=== PATIENT | female | born 1965 | race Caucasian/White ===

== ENCOUNTER 2017-09-14 12:49 | Emergency (ER) | payer OTHER ==
[~2017-09-14] VITALS: Ht 162.6 cm; Wt 119.7 kg
[2017-09-14] MEDS ORDERED: KETOROLAC 60 MG/2 ML VIAL. IM ONE (13:45)
[2017-09-14] MEDS ORDERED: IBUP800T19 PO (13:57)
[2017-09-14] MEDS ORDERED: TRAM-48 PO (13:57)
[2017-09-14] MEDS ORDERED: SULF1TAB24 PO (13:57)
[2017-09-14] MEDS ORDERED: MUPI1OIN NS (13:57)
--- NOTE | 2017-09-14 13:57 | PHYS DOC ---
Past History Past Medical History: Other Past Surgical History: Smoking: Non-smoker Alcohol Use: None Drug Use: None Adult General Chief Complaint Chief Complaint: FACE PROBLEM HPI HPI 51-year-old female patient states she felt discomfort feeling in her nose while tried to blow her nose and this morning she woke up and had swelling of her nasal septum with crusty discharge associated with mild edema and numbness of upper lip and bilateral lower eyelid edema more in left side than right side without fever and chills, history of MRSA or injury, nausea and vomiting, change of vision. Patient rated her pain 8/10 and is up-to-date with her tetanus immunization. Review of Systems Review of Systems Constitutional: Denies fever or chills [] Eyes: Denies change in visual acuity, redness, or eye pain [] HENT: Denies nasal congestion or sore throat [] Respiratory: Denies cough or shortness of breath [] Cardiovascular: No additional information not addressed in HPI [] GI: Denies abdominal pain, nausea, vomiting, bloody stools or diarrhea [] : Denies dysuria or hematuria [] Musculoskeletal: Denies back pain or joint pain [] Integument: Reports edema and erythema Neurologic: Denies headache, focal weakness or sensory changes [] Endocrine: Denies polyuria or polydipsia [] All other systems were reviewed and found to be within normal limits, except as documented in this note. Current Medications Current Medications Current Medications Medications (Trade) Dose Ordered Sig/Sheryl Start Time Stop Time Status Last Admin Dose Admin Ketorolac Tromethamine (Toradol) 60 mg 1X ONCE 09/14/17 13:45 09/14/17 13:46 DC 09/14/17 13:38 60 MG Allergies Allergies Allergies Coded Allergies Type Severity Reaction Last Updated Verified acetaminophen Allergy Unknown 09/14/17 Yes aspirin Allergy Unknown 09/14/17 Yes codeine Allergy Unknown 09/14/17 Yes meperidine Allergy Unknown 09/14/17 Yes oxycodone Allergy Unknown 09/14/17 Yes propoxyphene Allergy Unknown 09/14/17 Yes Physical Exam Physical Exam Constitutional: Well developed, well nourished, mild distress, non-toxic appearance. [] HENT: Normocephalic, bilateral external ears normal, oropharynx moist, no oral exudates, tenderness and edema of nasal septum with mild edema of upper lip , bilateral lower eyelid edema more in the left site Eyes: PERRLA, EOMI, conjunctiva normal, no discharge. [] Neck: Normal range of motion, no tenderness, supple, no stridor. [] Cardiovascular:Heart rate regular rhythm, no murmur [] Lungs & Thorax: Bilateral breath sounds clear to auscultation [] Neurologic: Alert and oriented X 3, normal motor function, normal sensory function, no focal deficits noted. [] Psychologic: Affect normal, judgement normal, mood normal. [] Current Patient Data Vital Signs Vital Signs Date Time Temp Pulse Resp B/P (MAP) Pulse Ox O2 Delivery O2 Flow Rate FiO2 09/14/17 13:30 104 18 126/91 (103) 99 Room Air 09/14/17 12:57 98.2 EKG EKG [] Radiology/Procedures Radiology/Procedures [] Course & Med Decision Making Course & Med Decision Making Evolution of patient in ER showed 51-year-old female patient with cellulitis of nasal cavity and facial edema. Patient treated with Toradol in ER and prescription for Bactroban and Bactrim and Ultram was given. Patient had blood sugar of 160/100 at arrival to ER that spontaneously decreased to 120/90. Patient instructed to record her blood pressure and follow with her primary care physician for possible diagnosis of hypertension . Dragon Disclaimer Dragon Disclaimer This electronic medical record was generated, in whole or in part, using a voice recognition dictation system. Departure Departure: Impression: Primary Impression: Cellulitis of nose Additional Impressions: MRSA infection Elevated blood pressure reading without diagnosis of hypertension Disposition: HOME, SELF-CARE (At 1400) Condition: IMPROVED Referrals: PCP,PAMELA (PCP) Patient Instructions: Cellulitis, Community-Associated MRSA Additional Instructions: Follow-up with your primary care physician or ER if not getting better in 24- 48 hours Scripts Ibuprofen (IBUPROFEN) 800 Mg Tablet 1 TAB PO TID, #30 TAB Prov: CAROL ANN DUNN MD 09/14/17 Tramadol Hcl (ULTRAM) 50 Mg Tablet 50 MG PO PRN Q6HRS Y for PAIN, #14 TAB Prov: CAROL ANN DUNN MD 09/14/17 Sulfamethoxazole/Trimethoprim (BACTRIM DS TABLET) 1 Each Tablet 1 TAB PO BID, #14 TAB Prov: CAROL ANN DUNN MD 09/14/17 Mupirocin Calcium (BACTROBAN NASAL) 1 Gm Oint...g. 1 GM NS BID, #10 GM Prov: CAROL ANN DUNN MD 09/14/17 Problem Qualifiers CAROL ANN DUNN MD Sep 14, 2017 13:57
[2017-09-14 14:00] VITALS: BP 136/89
== END 2017-09-14 14:07 | disposition home or self-care (01) ==
LOC: ER 12:49
DX: J34.0 Abscess, furuncle and carbuncle of nose (principal); B95.62 Methicillin resistant Staphylococcus aureus infection as the cause of diseases classified elsewhere; R03.0 Elevated blood-pressure reading, without diagnosis of hypertension; Z88.5 Allergy status to narcotic agent; Z88.6 Allergy status to analgesic agent; Z88.8 Allergy status to other drugs, medicaments and biological substances
CPT/HCPCS: 96372; 99283; J1885

== ENCOUNTER → 2019-04-09 | Outpatient (CLI) | payer OTHER ==
[~2019-04-09] MED LIST: CONTRAST GIVEN MC PRN; IBUP800T19 PO; IOHEXOL 240 MG/ML 50ML VIAL. ONE; IOHEXOL 240 MG/ML 50ML VIAL. PO ONE; IOHEXOL 300 MG/ML 75 ML VIAL. IV ONE; MUPI1OIN NS; SULF1TAB24 PO; TRAM-48 PO
--- NOTE | 2019-04-09 13:50 | RAD ---
CT of the pelvis with contrast 04/09/2019 INDICATION: Cystic mass in the pelvis, unsure if relates to the uterus or ovary. COMPARISON STUDY: None available Discussion: CT imaging of the pelvis performed following the administration of contrast. FINDINGS: There is a cystic mass in the right adnexa, likely arising from the right ovary measuring approximately 5.4 cm in maximal possible dimension. An adjacent small cystic structure or involuting follicle appears to be present, but could be considered continuities with the aforementioned cystic mass. Inferiorly, laterally, and posteriorly areas of possible cystic wall thickening are seen which appear to measure up to [address] is limited for evaluation of ovarian cystic lesions. . There is an approximately 5 cm enhancing mass with central hypodensity in the anterior uterine fundus likely a fibroid. Some fluid noted within the endometrial canal. Correlate with phase of menstrual cycle and/or bleeding. The bladder is relatively decompressed. No free fluid is seen in the pelvis. Distal colonic diverticulosis noted. No pelvic adenopathy is seen visualized bowel is nondilated no acute osseous abnormality involving the pelvis is seen. IMPRESSION: 1.5.4 cm cystic mass with, possible wall thickening up to 6 mm, and adjacent or contiguous small cystic mass versus including follicle. Note that CT is limited for evaluation of ovarian lesions. Transvaginal ultrasound or contrast-enhanced MRI offers better imaging resolution. Gynecology consultation recommended. 2. Probable fibroid within the anterior uterus measuring approximately [address] DOSING PQRS STATEMENT: One or more of the following individualized dose reduction techniques were utilized for this examination: 1. Automated exposure control 2. Adjustment of the mA and/or kV according to patient size 3. Use of iterative reconstruction technique Electronically signed by: Luis F Nicholson MD (04/09/2019 1:47 PM) [id number]
--- NOTE | 2019-04-09 15:43 | RAD ---
DATE: 04/09/2019 EXAM: DIGITAL SCREEN BILAT W/CAD HISTORY: Routine screening COMPARISON: 11/16/2014 This study was interpreted with the benefit of Computerized Aided Detection (CAD). Breast Density: SCATTERED The breast parenchyma shows scattered fibroglandular densities. Breast parenchyma level B. FINDINGS: No suspicious calcifications, masses, or distortion. IMPRESSION: Stable BI-RADS CATEGORY: 1 NEGATIVE RECOMMENDED FOLLOW-UP: 12M 12 MONTH FOLLOW-UP PQRS compliance statement: Patient information was entered into a reminder system with a target due date for the next mammogram. Mammography is a sensitive method for finding small breast cancers, but it does not detect them all and is not a substitute for careful clinical examination. A negative mammogram does not negate a clinically suspicious finding and should not result in delay in biopsying a clinically suspicious abnormality. "Our facility is accredited by the [employer] Mammography Program."
== END | disposition home or self-care (01) ==
LOC: MAMMO 09:40
PROVIDERS: ATTEND Obstetrics & Gynecology
DX: Z12.31 Encounter for screening mammogram for malignant neoplasm of breast (principal); K57.30 Diverticulosis of large intestine without perforation or abscess without bleeding; N94.89 Other specified conditions associated with female genital organs and menstrual cycle
CPT/HCPCS: 72193; 77067; Q9966; Q9967

== ENCOUNTER 2020-10-10 11:53 | Emergency (ER) | payer OTHER ==
[~2020-10-10] VITALS: Ht 162.6 cm; Wt 116.3 kg
[~2020-10-10 11:53] MED LIST changes: -CONTRAST GIVEN MC PRN; -IOHEXOL 240 MG/ML 50ML VIAL. ONE; -IOHEXOL 240 MG/ML 50ML VIAL. PO ONE; -IOHEXOL 300 MG/ML 75 ML VIAL. IV ONE
--- NOTE | 2020-10-10 12:28 | PHYS DOC ---
Past History Past Medical History: Migraines, Other Additional Past Medical Histor: Guillain-Johnson, chronic back pain Past Surgical History: (X3), Tubal ligation Additional Past Surgical Histo: Bartholin gland cyst removal Smoking: Non-smoker Alcohol Use: None Drug Use: None General Adult EDM: Chief Complaint: ABDOMINAL PAIN HPI: HPI: 54-year-old female presents with 1 week history of upper abdominal pain/tightness with radiation to bilateral flanks. Patient reports this became worse after eating some jalapeno poppers. Patient reports this has been an intermittent issue for the last 10 years. Reports significant family history of gallbladder disease. Patient concerned this is secondary to her gallbladder. Denies fever or chills. Reports associated nausea and vomiting. Denies trauma. Denies rash. Patient does report she still has menstrual periods. Denies . Reports surgical history of x3 and tubal ligation. Review of Systems: Review of Systems: Constitutional: Denies fever or chills Eyes: Denies redness or eye pain HENT: Denies nasal congestion or sore throat Respiratory: Denies cough or shortness of breath Cardiovascular: Denies chest pain or palpitations GI: Reports abdominal pain, nausea, and vomiting : Denies dysuria or hematuria Musculoskeletal: Reports bilateral flank pain; denies joint pain Integument: Denies rash or skin lesions Neurologic: Denies headache, focal weakness or sensory changes Complete systems were reviewed and found to be within normal limits, except as documented in this note. Allergies: Allergies: Allergies Coded Allergies Type Severity Reaction Last Updated Verified acetaminophen Allergy Unknown 09/14/17 Yes aspirin Allergy Unknown 09/14/17 Yes codeine Allergy Unknown 09/14/17 Yes meperidine Allergy Unknown 09/14/17 Yes oxycodone Allergy Unknown 09/14/17 Yes propoxyphene Allergy Unknown 09/14/17 Yes Physical Exam: PE: Constitutional: Well developed, obese, no acute distress, non-toxic appearance HENT: Normocephalic, atraumatic Eyes: Conjunctiva normal, no discharge Neck: Normal range of motion, no tenderness, supple Lungs & Thorax: No respiratory distress, equal chest rise and fall Abdomen: Soft, upper quadrant tenderness, no distention Skin: Warm, dry, no erythema, no rash Back: No tenderness, bilateral CVA tenderness Extremities: No tenderness, ROM intact, no edema Neurologic: Alert and oriented X 3, no focal deficits noted Psychologic: Affect normal, judgment normal EKG: EKG: @1226 NSR at 83 bpm, NO ST elevation, QRS 92ms, QT/QTc 346/407ms Radiology/Procedures: Radiology/Procedures: PROCEDURE: CT ABD PELV W/ IV CONTRST ONLY Site ID: [id number] EXAMINATION: CT ABDOMEN+PELVIS W. Technique: Axial images with coronal and sagittal reconstructions are performed of abdomen and pelvis with intravenous contrast. 100 ml of Isovue-300 was administered intravenously. One or more of the following radiation dose reduction techniques was used: automated exposure control, adjustment of mA and/or KV according to patient size, and/or utilization of iterative reconstruction technique. HISTORY: 54 years Female Reason: upper abdominal pain / Spl. Instructions: / History: . . COMPARISON: None. FINDINGS: There is a calcified granuloma in the left lung base. Calcified granulomas are also seen in the spleen the liver with no soft tissue mass. Multiple gallbladder stones are noted with no evidence of acute cholecystitis. The pancreas and adrenals appear unremarkable. The kidneys demonstrate symmetric enhancement. There is no hydronephrosis. There are 2 hypodense lesions in the right kidney up to 8 mm in size, too small to accurately characterize. Statistically these are most likely related to cysts. The the urinary bladder, uterus and adnexa appear unremarkable. There is prominent diverticulosis seen in the colon mostly in the sigmoid and descending colon. No diverticulitis. Appendix is normal. No bowel obstruction. No free fluid or fluid collection in the abdomen or pelvis. The abdominal aorta is normal in caliber. No para-aortic significantly enlarged lymph node is seen. The mild the anterior osteophytes at multiple levels in the lower thoracic upper lumbar spine seen. IMPRESSION: 1. Cholelithiasis. 2. Diverticulosis. No diverticulitis. Electronically signed by: Edu Jeffery MD (10/10/2020 12:49 PM) [id number] Heart Score: C/O Chest Pain: N/A Course & Med Decision Making: Course & Med Decision Making Pertinent Labs and Imaging studies reviewed. (See chart for details) Patient presents with upper abdominal pain and tightness with radiation to bilateral flanks. Significant family history of gallbladder disease. Pain/nausea addressed. IV fluid hydration given. EKG stable. Labs obtained and posted to chart. LFTs slightly elevated. UA appears contaminated. CT abdomen/pelvis with findings of cholelithiasis without signs of acute cholecystitis. Patient does not require emergent surgery but should follow closely with outpatient general surgery for removal of her gallbladder. Patient stable for discharge with outpatient follow-up with PCP/general surgery. General surgery referral provided. Discussed findings and plan with patient and family, who acknowledge understanding and agreement. Lizz Disclaimer: Lizz Disclaimer: This electronic medical record was generated, in whole or in part, using a voice recognition dictation system. Departure Departure: Impression: Primary Impression: Cholelithiasis Qualified Codes: K80.20 - Calculus of gallbladder without cholecystitis without obstruction Additional Impression: Elevated LFTs Disposition: HOME / SELF CARE / HOMELESS Condition: STABLE Referrals: MADY FERNANDEZ MD (PCP) YAZ GORE MD Patient Instructions: Cholelithiasis, Fat and Cholesterol Control Diet, [id number] Additional Instructions: Increase fluid hydration. Have your family doctor or surgeon repeat your liver enzymes for re-evaluation. Scripts Hyoscyamine Sulfate (LEVSIN-SL) 0.125 Mg Tab.subl 0.125 MG SL Q6HRS PRN for STOMACH CRAMPING, #14 TAB Prov: ASHLEY EVANS DO 10/10/20 Ondansetron (ONDANSETRON ODT) 4 Mg Tab.rapdis 1 TAB PO PRN Q6-8HRS PRN for NAUSEA, #16 TAB Prov: ASHLEY EVANS DO 10/10/20 Famotidine (PEPCID) 20 Mg Tablet 1 TAB PO BID for Gastritis, #10 TAB Prov: ASHLEY EVANS DO 10/10/20 Tramadol Hcl (TRAMADOL HCL) 50 Mg Tablet 50 MG PO PRN Q6HRS PRN for PAIN, #14 TAB Prov: ASHLEY EVANS DO 10/10/20 ASHLEY EVANS DO October 10, 2020 12:28
[2020-10-10] MEDS ORDERED: ONDANSETRON PF 4 MG/2 ML VIAL. IVP ONE (12:30)
[2020-10-10] MEDS ORDERED: FAMOTIDINE 20 MG/2 ML VIAL IVP ONE (12:30)
[2020-10-10] MEDS ORDERED: IV NORMAL SALINE 1,000ML 1,000 ML IV ONE (12:30)
[2020-10-10] MEDS ORDERED: IOHEXOL 300 MG/ML 75 ML VIAL. IV ONE (12:30)
--- NOTE | 2020-10-10 12:51 | RAD ---
Site ID: [id number] EXAMINATION: CT ABDOMEN+PELVIS W. Technique: Axial images with coronal and sagittal reconstructions are performed of abdomen and pelvis with intravenous contrast. 100 ml of Isovue-300 was administered intravenously. One or more of the following radiation dose reduction techniques was used: automated exposure control , adjustment of mA and/or KV according to patient size, and/or utilization of iterative reconstructio n technique. HISTORY: 54 years Female Reason: upper abdominal pain / Spl. Instructions: / History: . . COMPARISON: None. FINDINGS: There is a calcified granuloma in the left lung base. Calcified granulomas are also seen in the spleen the liver with no soft tissue mass. Multiple gallbla dder stones are noted with no evidence of acute cholecystitis. The pancreas and adrenals appear unrem arkable. The kidneys demonstrate symmetric enhancement. There is no hydronephrosis. There are 2 hypodense lesi ons in the right kidney up to 8 mm in size, too small to accurately characterize. Statistically these are most likely related to cysts. The the urinary bladder, uterus and adnexa appear unremarkable. There is prominent diverticulosis seen in the colon mostly in the sigmoid and descending colon. No di verticulitis. Appendix is normal. No bowel obstruction. No free fluid or fluid collection in the abdomen or pelvis. The abdominal aorta is normal in caliber. No para-aortic significantly enlarged lymph node is seen. The mild the anterior osteophytes at multiple levels in the lower thoracic upper lumbar spine seen. IMPRESSION: 1. Cholelithiasis. 2. Diverticulosis. No diverticulitis. Electronically signed by: Edu Jeffery MD (10/10/2020 12:49 PM) [id number]
[2020-10-10 12:52] LABS: BASO # 0.1 x10^3/uL (0.0-0.2); BASO % 1 % (0-3); EOS # 0.2 x10^3/uL (0.0-0.7); EOS % 2 % (0-3); HEMATOCRIT 38.9 % (36.0-47.0); HEMOGLOBIN 13.3 g/dL (12.0-15.5); LYMPH # 2.4 x10^3/uL (1.0-4.8); LYMPH % 26 % (24-48); MEAN CORPUSCULAR HEMOGLOBIN 31 pg (25-35); MEAN CORPUSCULAR HGB CONC 34 g/dL (31-37); MEAN CORPUSCULAR VOLUME 91 fL (79-100); MONO # 0.8 x10^3/uL (0.0-1.1); MONO % 8 % (0-9); NEUT # 5.8 x10^3uL (1.8-7.7); NEUT % 62 % (31-73); PLATELET COUNT 396 x10^3/uL (140-400); RED BLOOD COUNT 4.28 x10^6/uL (3.50-5.40); RED CELL DISTRIBUTION WIDTH 14.7 % (11.5-14.5); WHITE BLOOD COUNT 9.3 x10^3/uL (4.0-11.0)
[2020-10-10 13:04] LABS: CALCIUM 9.8 mg/dL (8.5-10.1); CREATININE 0.9 mg/dL (0.6-1.0); GFR 65.8; POTASSIUM 4.2 mmol/L (3.5-5.1)
[2020-10-10 13:10] LABS: BACTERIA,URINE 0 /HPF (0-FEW); BILIRUBIN,URINE NEG (NEG); CLARITY,URINE CLEAR; COLOR,URINE YELLOW; GLUCOSE,URINE NEG (NEG); NITRITE,URINE NEG (NEG); RBC,URINE 0 /HPF (0-2); SQUAMOUS EPITHELIAL CELL,UR MOD /LPF; UROBILINOGEN,URINE 0.2 mg/dL (0.2 mg/dL)
[2020-10-10 13:14] VITALS: BP 131/55
[2020-10-10 13:20] LABS: ALBUMIN 3.9 g/dL (3.4-5.0); ALBUMIN/GLOBULIN RATIO 1.1 (1.0-1.7); MAGNESIUM 1.9 mg/dL (1.8-2.4); TOTAL BILIRUBIN 0.3 mg/dL (0.2-1.0); TOTAL PROTEIN 7.3 g/dL (6.4-8.2)
--- NOTE | 2020-10-10 13:33 | EKG ---
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
[2020-10-10] MEDS ORDERED: FAMO-63 PO (14:03)
[2020-10-10] MEDS ORDERED: TRAM50TA PO (14:03)
[2020-10-10] MEDS ORDERED: ONDA4TAB12 PO (14:03)
[2020-10-10] MEDS ORDERED: HYOS0.1265 SL (14:03)
== END 2020-10-10 14:15 | disposition home or self-care (01) ==
LOC: ER 11:53
DX: K80.20 Calculus of gallbladder without cholecystitis without obstruction (principal); R79.89 Other specified abnormal findings of blood chemistry; G43.909 Migraine, unspecified, not intractable, without status migrainosus; G89.29 Other chronic pain; Z98.51 Tubal ligation status; Z98.890 Other specified postprocedural states; Z88.8 Allergy status to other drugs, medicaments and biological substances; Z88.6 Allergy status to analgesic agent; Z88.5 Allergy status to narcotic agent
CPT/HCPCS: 36415; 74177; 80053; 81001; 81025; 82553; 83605; 83690; 83735; 84484; 85025; 87086; 93005; 96361; 96374; 96375; 99285; J2405; J3010; J3490; J7030; Q9967